=== PATIENT | male | born 1990 | race Hispanic/Latino ===

== ENCOUNTER 2025-02-27 02:54 | Emergency (ER) | payer SELFPAY ==
[~2025-02-27] VITALS: Ht 172.7 cm; Wt 78.9 kg
[2025-02-27 03:00] VITALS: RESP 15; TEMP 97.7
[2025-02-27 03:32] LABS: BASOPHILS % 0.5 % (0.0-1.0); EOSINOPHILS % 1.7 % (0.0-6.0); LYMPHOCYTES % 24.6 % (18.0-39.1); MONOCYTES % 7.3 % (4.4-11.3); NEUTROPHILS % 65.8 % (38.7-80.0); RED CELL DISTRIBUTION WIDTH 13.0 % (11.7-14.4)
[2025-02-27] MEDS: BELLADONNA ALK/PHENOBARBITAL 5 ML UDC PO ONE (03:55)
[2025-02-27] MEDS: LIDOCAINE VISC 2% SOLN 15 ML UDC PO STA (03:55)
[2025-02-27] MEDS: MAGNESIUM/ALUMINUM/SIMETHICONE 30 ML UDC PO STA (03:55)
[2025-02-27 04:02] LABS: EST GLOMERULAR FILTRATION RATE 108.0 ML/MIN (>=60)
[2025-02-27 04:15] VITALS: PULSE 55
[2025-02-27] MEDS ORDERED: PROTONIX20 MG PO (04:28)
[2025-02-27 04:42] VITALS: BP 119/85; O2SAT 100
== END 2025-02-27 04:40 | disposition home or self-care (01) ==
LOC: ER 03:00
DX: R06.02 Shortness of breath (principal); K29.70 Gastritis, unspecified, without bleeding; R10.13 Epigastric pain
CPT/HCPCS: 36415; 71045; 80053; 82550; 83690; 83880; 84484; 85025; 93005; 99284